=== PATIENT | female | born 1950 | race Caucasian/White ===

== ENCOUNTER 2020-09-24 04:25 | Emergency (ER) | payer MEDICARE ==
[~2020-09-24] VITALS: Ht 162.6 cm; Wt 68.0 kg
[2020-09-24 04:39] VITALS: Ht 162.6 cm; Wt 68.0 kg
[2020-09-24 05:42] LABS: BASOPHIL % 0.4 % (0.2-1.3); PLATELET COUNT 274 x10^3mcL (179-408); RED CELL DISTRIBUTION WIDTH 13.5 % (12.3-17.7)
[2020-09-24 05:50] LABS: CALCIUM 9.8 mg/dL (8.5-10.1); CARBON DIOXIDE 26.4 mmol/L (21-32); CHLORIDE SERUM 101 mmol/L (98-107); CREATININE SERUM 0.9 mg/dL (0.6-1.0); GFR1 > 60 mL/min; GLUCOSE SERUM 149 mg/dL (74-106); POTASSIUM SERUM 3.4 mmol/L (3.5-5.1); SODIUM SERUM 137 mmol/L (136-145)
[2020-09-24 06:01] LABS: ALBUMIN 3.7 g/dL (3.4-5.0); ALKALINE PHOSPHATASE 105 U/L (46-116); ALT/SGPT 31 U/L (14-59); AST/SGOT 33 U/L (15-37); BILIRUBIN TOTAL 0.7 mg/dL (0.20-1.00); MAGNESIUM 1.5 mg/dL (1.8-2.4)
[2020-09-24 06:02] LABS: TOTAL PROTEIN, SERUM 8.3 g/dL (6.4-8.2)
[2020-09-24 07:21] VITALS: BP 182/149
== END 2020-09-24 07:07 | disposition short-term general hospital (02) ==
LOC: ED 04:25
PROVIDERS: Student in an Organized Health Care Education/Training Program
DX: R04.0 Epistaxis (principal); I48.20 Chronic atrial fibrillation, unspecified; I10 Essential (primary) hypertension
CPT/HCPCS: J2270; J2405; J3490